=== PATIENT | male | born 1995 | race Caucasian/White ===

== ENCOUNTER 2016-08-19 16:27 | Emergency (ER) | payer OTHER ==
[2016-08-19] MEDS ORDERED: AMOX 875 MG/CLAV 125 MG 1 EACH TABLET ONE (19:09)
== END 2016-08-19 19:17 | disposition home or self-care (01) ==
LOC: ED 16:27
DX: H66.92 Otitis media, unspecified, left ear (principal); J01.00 Acute maxillary sinusitis, unspecified; F17.210 Nicotine dependence, cigarettes, uncomplicated